=== PATIENT | female | born 1950 | race Hispanic/Latino ===

== ENCOUNTER → 2022-06-26 | Outpatient (CLI) | payer OTHER | END | disposition home or self-care (01) | LOC: SHCH 08:52 | PROVIDERS: ATTEND Internal Medicine | DX: I31.39 Other pericardial effusion (noninflammatory) (principal); I35.1 Nonrheumatic aortic (valve) insufficiency; E78.5 Hyperlipidemia, unspecified | CPT/HCPCS: 93306 ==

== ENCOUNTER → 2022-07-27 | Outpatient (CLI) | payer OTHER ==
[2022-07-27 12:58] LABS: CARBON DIOXIDE 30 mmol/L (21-32); CHLORIDE 107 mmol/L (101-111); CREATININE 0.8 mg/dL (0.5-1.5); GLOMERULAR FILTR. RATE CALC 75 mL/min (>60); GLUCOSE,RANDOM 106 mg/dL (70-105); SODIUM SERUM 143 mmol/L (136-145); UREA NITROGEN, BLOOD 17 mg/dL (7-18)
[2022-07-27 13:13] LABS: CRP QUANTITATIVE < 2.00 mg/L (0.00-9.0)
== END | disposition home or self-care (01) ==
LOC: LAB 11:07
PROVIDERS: ATTEND Internal Medicine
DX: I30.1 Infective pericarditis (principal); I31.39 Other pericardial effusion (noninflammatory)
CPT/HCPCS: 36415; 80048; 86140

== ENCOUNTER → 2022-10-21 | Outpatient (CLI) | payer OTHER | END | disposition home or self-care (01) | LOC: SHCH 10:47 | PROVIDERS: ATTEND Internal Medicine | DX: I31.39 Other pericardial effusion (noninflammatory) (principal); I07.1 Rheumatic tricuspid insufficiency | CPT/HCPCS: 93306 ==

== ENCOUNTER → 2023-02-15 | Outpatient (CLI) | payer OTHER | END | disposition home or self-care (01) | LOC: SHCH 13:01 | PROVIDERS: ATTEND Internal Medicine | DX: I31.39 Other pericardial effusion (noninflammatory) (principal) | CPT/HCPCS: 93308 ==

== ENCOUNTER → 2023-02-18 | Outpatient (CLI) | payer OTHER ==
[2023-02-18 16:34] LABS: CARBON DIOXIDE 30 mmol/L (21-32); CHLORIDE 107 mmol/L (101-111); CREATININE 0.7 mg/dL (0.5-1.5); GLOMERULAR FILTR. RATE CALC 92 mL/min (>90); GLUCOSE,RANDOM 84 mg/dL (70-105); POTASSIUM 4.1 mmol/L (3.5-5.1); SODIUM SERUM 143 mmol/L (136-145); UREA NITROGEN, BLOOD 15 mg/dL (7-18)
[2023-02-18 16:35] LABS: CRP QUANTITATIVE < 2.00 mg/L (0.00-9.0)
== END | disposition home or self-care (01) ==
LOC: LAB 12:39
PROVIDERS: ATTEND Internal Medicine
DX: I31.39 Other pericardial effusion (noninflammatory) (principal)
CPT/HCPCS: 36415; 80048; 85651; 86140

== ENCOUNTER → 2024-02-29 | Outpatient (CLI) | payer OTHER | END | disposition home or self-care (01) | LOC: SHCH 10:00 | PROVIDERS: ATTEND Internal Medicine | DX: I31.39 Other pericardial effusion (noninflammatory) (principal) | CPT/HCPCS: 93308 ==

== ENCOUNTER → 2024-03-01 | Outpatient (CLI) | payer OTHER ==
[2024-03-01 16:21] LABS: BASOPHILS # (AUTO) 0.03 K/uL (0.00-0.20); BASOPHILS % (AUTO) 0.4 % (0.0-5.0); EOSINOPHILS # (AUTO) 0.23 K/uL (0.00-0.70); HEMATOCRIT 39.8 % (36-48); IMMATURE GRANULOCYTE ABSOLUTE 0.03 K/uL (0-1); LYMPHOCYTES # (AUTO) 2.4 K/uL (1.0-4.8); LYMPHOCYTES % (AUTO) 30.7 % (21.0-51.0); MEAN CORPUSCULAR HEMOGLOBIN 30.8 pg (27.0-33.0); MEAN CORPUSCULAR HGB CONC 32.9 g/dL (32.0-36.0); MEAN CORPUSCULAR VOLUME 93.4 fL (79-99); MONOCYTES # (AUTO) 0.5 K/uL (0.1-1.0); MONOCYTES % (AUTO) 6.6 % (3.0-13.0); NEUTROPHILS # (AUTO) 4.6 K/uL (1.8-7.7); NEUTROPHILS % (AUTO) 58.9 % (40.0-77.0); PLATELET COUNT (AUTO) 330 K/uL (130-400); RED BLOOD CELL COUNT(AUTO) 4.26 MIL/uL (4.00-5.50); RED CELL DISTRIBUTION WIDTH 12.9 % (11.0-15.5); WHITE BLOOD COUNT (AUTO) 7.7 K/uL (4.8-10.8)
[2024-03-01 16:38] LABS: CREATININE 0.9 mg/dL (0.5-1.0); POTASSIUM 4.3 mmol/L (3.5-5.1)
[2024-03-01 17:33] LABS: ERYTHROCYTE SEDIMENTATION RATE 2 MM/HR (0-30)
== END | disposition home or self-care (01) ==
LOC: LAB 15:25
PROVIDERS: ATTEND Internal Medicine
DX: I31.39 Other pericardial effusion (noninflammatory) (principal); I31.8 Other specified diseases of pericardium
CPT/HCPCS: 36415; 80048; 83880; 85025; 85651; 86140